=== PATIENT | male | born 1970 | race Caucasian/White ===

== ENCOUNTER → 2017-04-13 | Outpatient (CLI) | payer OTHER ==
[2017-04-13 09:21] LABS: BASO % 0.4 % (0.0-1.0); EOS # 0.2 10*3/uL (0.0-0.4); EOS % 4.8 % (1.0-4.0); HEMATOCRIT 47.6 % (42.0-52.0); HEMOGLOBIN 17.1 g/dl (14.0-18.0); LYMPH # 1.3 10*3/uL (1.3-4.4); LYMPH % 27.3 % (27.0-41.0); MEAN CELL VOLUME 90.2 fl (80.0-94.0); MEAN CORPUSCULAR HGB 32.4 pg (27.0-31.0); MEAN CORPUSCULAR HGB CONC 35.9 g/dl (33.0-37.0); MEAN PLATELET VOLUME 9.7 fl (9.6-12.3); MONO # 0.3 10*3/uL (0.1-1.0); MONO % 7.1 % (3.0-9.0); NEUT # 2.9 10*3/uL (2.3-7.9); NEUT % 60.2 % (47.0-73.0); PLATELET COUNT AUTOMATED 216 10*3/uL (130-400); RED BLOOD COUNT 5.28 10*6/uL (4.50-5.90); RED CELL DISTRI WIDTH 11.6 % (0-14.5); WHITE BLOOD COUNT 4.8 10*3/uL (4.8-10.8)
[2017-04-13 09:55] LABS: ALBUMIN 4.3 gm/dl (3.1-4.5); ALKALINE PHOSPHATASE 61 U/L (45-117); BUN 11 mg/dl (7-24); CHLORIDE 102 mmol/L (98-107); CHOLESTEROL 249 mg/dL (<200); CREATININE 0.94 mg/dL (0.70-1.30); HDL CHOLESTEROL 71 mg/dl (40-60); LDL CHOLESTEROL 150 mg/dL (9-159); POTASSIUM 3.9 mmol/L (3.5-5.1); SGOT/AST 20 IU/L (3-35); SGPT/ALT 30 U/L (12-78); SODIUM 140 mmol/L (136-145); TOTAL PROTEIN 7.8 gm/dL (6.4-8.2); TRIGLYCERIDES 138 mg/dl (<150); VLDL CHOLESTEROL 28 mg/dL (6-40)
== END ==
LOC: LAB 09:01
PROVIDERS: Nurse Practitioner Primary Care
DX: E55.9 Vitamin D deficiency, unspecified (principal); Z68.26 Body mass index [BMI] 26.0-26.9, adult; M25.551 Pain in right hip

== ENCOUNTER → 2017-05-28 | Outpatient (CLI) | payer OTHER ==
[2017-05-28 14:46] LABS: BILIRUBIN, DIRECT 0.1 mg/dL (0.0-0.2)
[2017-05-29 16:10] LABS: ANTI-SMOOTH MUSCLE ANTIBODY 8 Units (0-19)
== END | disposition home or self-care (01) ==
LOC: LAB 13:50
PROVIDERS: Family Medicine
DX: E80.6 Other disorders of bilirubin metabolism (principal); R10.9 Unspecified abdominal pain

== ENCOUNTER → 2017-06-15 | Outpatient (CLI) | payer OTHER | END | disposition home or self-care (01) | LOC: US 13:00 | DX: D30.02 Benign neoplasm of left kidney (principal) ==

== ENCOUNTER → 2017-07-04 | Outpatient (CLI) | payer OTHER | END | disposition home or self-care (01) | LOC: CT 16:00 | DX: R10.9 Unspecified abdominal pain (principal) ==

== ENCOUNTER → 2017-07-12 | Outpatient (CLI) | payer OTHER ==
[2017-07-14 01:06] LABS: TESTOSTERONE FREE, (DIRECT) 7.3 pg/mL (6.8-21.5)
== END | disposition home or self-care (01) ==
LOC: LAB 15:08
PROVIDERS: Family Medicine
DX: N40.0 Benign prostatic hyperplasia without lower urinary tract symptoms (principal)

== ENCOUNTER → 2019-05-02 | Outpatient (CLI) | payer OTHER | END | disposition home or self-care (01) | LOC: CARD 11:35 | DX: S46.211A Strain of muscle, fascia and tendon of other parts of biceps, right arm, initial encounter (principal); Z01.810 Encounter for preprocedural cardiovascular examination; X58.XXXA Exposure to other specified factors, initial encounter; Y93.89 Activity, other specified; Y92.89 Other specified places as the place of occurrence of the external cause; Y99.8 Other external cause status ==

== ENCOUNTER → 2020-01-30 | Outpatient (CLI) | payer OTHER | END | disposition home or self-care (01) | LOC: COVID19 16:04 | PROVIDERS: ATTEND Family Medicine | DX: Z20.828 Contact with and (suspected) exposure to other viral communicable diseases (principal) ==